=== PATIENT | female | born 1945 | race Caucasian/White ===

== ENCOUNTER 2021-11-08 23:22 | Emergency (ER) | payer MEDICARE, OTHER ==
[~2021-11-08] VITALS: Ht 152.4 cm; Wt 59.0 kg
[~2021-11-08 23:22] MED LIST: ACYC30OI TP; LEVO25TA9 PO; LEVO50TA8; [UNRECOGNIZED DRUG - OTHER]
--- NOTE | 2021-11-08 23:53 | NUR ---
PT SEEN BY LITA MO
--- NOTE | 2021-11-08 23:57 | NUR ---
BIBS C/O SOB X2DAYS AND COLD SYMPTOMS X3 DAYS. TESTED POSITIVE FOR COVID TODAY. PT A/OX4. TOLERATING R/A AT 100%. CONNECTED PT TO POX MONITOR.
[2021-11-09] MEDS ORDERED: AZIT250T13 PO (00:27)
[2021-11-09] MEDS: AZITHROMYCIN 250 MG TABLET PO ONE (00:30)
[2021-11-09] MEDS ORDERED: AZITHROMYCIN 250 MG TABLET ONE (00:33)
--- NOTE | 2021-11-09 00:37 | NUR ---
Patient discharged to home in stable condition. Written and verbal after care instructions given. Patient verbalizes understanding of instruction.pT ambulatory with a steady gait
[2021-11-09 01:08] VITALS: BP 157/91
== END 2021-11-09 00:37 | disposition home or self-care (01) ==
LOC: MERGE 23:27 → ER 23:27
DX: U07.1 COVID-19 (principal); J12.82 Pneumonia due to coronavirus disease 2019; H91.90 Unspecified hearing loss, unspecified ear; N39.0 Urinary tract infection, site not specified; F32.9 Major depressive disorder, single episode, unspecified; F41.9 Anxiety disorder, unspecified; E03.9 Hypothyroidism, unspecified; Z88.4 Allergy status to anesthetic agent; Z91.048 Other nonmedicinal substance allergy status; Z79.899 Other long term (current) drug therapy
CPT/HCPCS: 71045-TC

== ENCOUNTER 2022-03-13 16:22 | Emergency (ER) | payer MEDICARE, OTHER ==
[~2022-03-13] VITALS: Ht 162.6 cm; Wt 56.2 kg
[~2022-03-13 16:22] MED LIST changes: +AZIT250T13 PO
--- NOTE | 2022-03-13 16:35 | NUR ---
BIBS C/O LOWER ABDOMINAL PAIN 7/10 X COUPLE DAYS, PT STATED SHE URINATE MORE FREQUENTLY. AMBULATORY, PLACED ON BED, AAOX4.
--- NOTE | 2022-03-13 16:44 | NUR ---
AT BED SIDE
--- NOTE | 2022-03-13 16:47 | NUR ---
URINE SAMPLE SENT TO LAB
[2022-03-13 17:16] LABS: BASOPHILS % (AUTO) 0.8 % (0.0-2.0); EOSINOPHILS % (AUTO) 0.7 % (0.0-6.0); HEMATOCRIT 35 % (33-45); HEMOGLOBIN 11.6 g/dL (11.5-14.8); LYMPHOCYTES # (AUTO) 0.8 K/uL (0.8-4.8); LYMPHOCYTES % (AUTO) 15.1 % (20.0-44.0); MEAN CORPUSCULAR HGB CONC 33 g/dl (31.0-36.0); MEAN CORPUSCULAR VOLUME 94 fL (82-100); MONOCYTES # (AUTO) 0.5 K/uL (0.1-1.30); MONOCYTES % (AUTO) 9.4 % (2.0-12.0); NEUTROPHILS # (AUTO) 3.8 K/uL (1.8-8.9); PLATELET COUNT (AUTO) 256 K/uL (150-450); WHITE BLOOD COUNT (AUTO) 5.1 K/uL (4.3-11.0)
[2022-03-13 17:37] LABS: BILIRUBIN,URINE NEGATIVE (NEGATIVE); COLOR,URINE YELLOW (YELLOW); LEUKOCYTE ESTERASE ,URINE NEGATIVE (NEGATIVE); NITRITE, URINE NEGATIVE (NEGATIVE); PH,URINE 6.5 (5.0-8.0); PROTEIN,URINE NEGATIVE (NEGATIVE); UGLUCOSE NEGATIVE (NEGATIVE); UROBILINOGEN,URINE 0.2 EU/dL (0.2)
[2022-03-13 17:43] LABS: ALBUMIN 3.5 g/dL (3.4-5.0); BILIRUBIN,DIRECT 0.1 mg/dL (0.0-0.2); BILIRUBIN,TOTAL 0.3 mg/dL (0.2-1.0); CALCIUM, SERUM 8.4 mg/dL (8.5-10.1); CREATININE 0.8 mg/dL (0.6-1.3); TOTAL PROTEIN, SERUM 6.7 g/dL (6.4-8.2)
[2022-03-13] MEDS ORDERED: NITR100C6 PO (17:51)
[2022-03-13 17:57] VITALS: BP 105/62
[2022-03-13 17:57] LABS: BACTERIA,URINE RARE /HPF (None Seen); MUCUS,URINE Few /LPF (None Seen); WBC,URINE 0-2 /HPF (0-3)
--- NOTE | 2022-03-13 17:57 | NUR ---
Patient discharged to home in stable condition. Written and verbal after care instructions given. Patient verbalizes understanding of instruction.
== END 2022-03-13 17:55 | disposition home or self-care (01) ==
LOC: ER 16:27
DX: R31.9 Hematuria, unspecified (principal); E89.0 Postprocedural hypothyroidism; Z87.19 Personal history of other diseases of the digestive system; Z87.440 Personal history of urinary (tract) infections; Z88.8 Allergy status to other drugs, medicaments and biological substances; Z79.899 Other long term (current) drug therapy
CPT/HCPCS: 36415; 80048-TC; 80076-TC; 81001; 83690-TC; 85025-TC; 87086-TC

== ENCOUNTER 2022-03-18 16:33 | Emergency (ER) | payer MEDICARE, OTHER ==
[~2022-03-18] VITALS: Ht 162.6 cm; Wt 56.7 kg
[~2022-03-18 16:33] MED LIST changes: +NITR100C6 PO
--- NOTE | 2022-03-18 16:40 | NUR ---
BIB SELF C/O LOWER ABDOMINAL PAIN X 5 DAYS. SEEN HERE LAST 03/13/22 FOR UTI. ON ANTIBIOTIC TREATMENT. PATIENT IS PLACED IN RM 12. VITALS CHECKED.
[2022-03-18] MEDS ORDERED: CEFTRIAXONE 1GM BAG (ER ONLY) 50 ML IV ONE (17:52)
[2022-03-18] MEDS ORDERED: CEFTRIAXONE 1GM BAG (ER ONLY) 1 GM/50 ML PIGGYBACK IV ONE (18:00)
--- NOTE | 2022-03-18 18:05 | NUR ---
IV CANNULA G18 INSERTED ON RIGHT AC. BLOOD DRAWN AND SENT TO LAB
[2022-03-18 18:14] LABS: BASOPHILS # (AUTO) 0.1 K/uL (0.0-0.2); BASOPHILS % (AUTO) 1.2 % (0.0-2.0); EOSINOPHILS % (AUTO) 1.8 % (0.0-6.0); HEMATOCRIT 36 % (33-45); HEMOGLOBIN 12.1 g/dL (11.5-14.8); LYMPHOCYTES # (AUTO) 0.8 K/uL (0.8-4.8); LYMPHOCYTES % (AUTO) 15.2 % (20.0-44.0); MEAN CORPUSCULAR HGB CONC 34 g/dl (31.0-36.0); MEAN CORPUSCULAR VOLUME 95 fL (82-100); MONOCYTES # (AUTO) 0.5 K/uL (0.1-1.30); NEUTROPHILS # (AUTO) 3.9 K/uL (1.8-8.9); NEUTROPHILS % (AUTO) 72.8 % (43.0-81.0); PLATELET COUNT (AUTO) 258 K/uL (150-450); RED BLOOD CELL COUNT(AUTO) 3.81 MIL/uL (4.0-5.2); WHITE BLOOD COUNT (AUTO) 5.4 K/uL (4.3-11.0)
[2022-03-18 18:39] LABS: ALBUMIN 3.5 g/dL (3.4-5.0); BILIRUBIN,DIRECT 0.1 mg/dL (0.0-0.2); BILIRUBIN,TOTAL 0.3 mg/dL (0.2-1.0); CALCIUM, SERUM 8.4 mg/dL (8.5-10.1); CREATININE 0.8 mg/dL (0.6-1.3); TOTAL PROTEIN, SERUM 6.8 g/dL (6.4-8.2)
[2022-03-18 18:57] LABS: BILIRUBIN,URINE NEGATIVE (NEGATIVE); COLOR,URINE YELLOW (YELLOW); LEUKOCYTE ESTERASE ,URINE NEGATIVE (NEGATIVE); NITRITE, URINE NEGATIVE (NEGATIVE); PH,URINE 5.5 (5.0-8.0); PROTEIN,URINE NEGATIVE (NEGATIVE); UGLUCOSE NEGATIVE (NEGATIVE); UROBILINOGEN,URINE 0.2 EU/dL (0.2)
[2022-03-18] MEDS ORDERED: IV NS 0.9% 1,000 ML BAG IV ONE (19:00)
--- NOTE | 2022-03-18 19:13 | NUR ---
PATIENT WANT TO STOP IV FLUIDS. SHE SAID SHE DOESNT FEEL GOOD. WE EXPLAINED THE BENEFIT OF IT. DR RANDHAWA WENT TO TALK TO THE PATIENT.
--- NOTE | 2022-03-18 19:30 | NUR ---
SON AT BEDSIDE
[2022-03-18] MEDS ORDERED: SULF1TAB48 PO (19:50)
--- NOTE | 2022-03-18 20:09 | NUR ---
IV CANNULA REMOVED.
--- NOTE | 2022-03-18 20:10 | NUR ---
Patient discharged to home in stable condition. Written and verbal after care instructions given. Patient verbalizes understanding of instruction.
[2022-03-18 20:13] VITALS: BP 166/73
== END 2022-03-18 20:13 | disposition home or self-care (01) ==
LOC: ER 16:35
DX: N39.0 Urinary tract infection, site not specified (principal); Z87.19 Personal history of other diseases of the digestive system; Z87.440 Personal history of urinary (tract) infections; Z90.89 Acquired absence of other organs; Z88.8 Allergy status to other drugs, medicaments and biological substances; Z79.899 Other long term (current) drug therapy
CPT/HCPCS: 36415; 80048; 80076; 81003; 83690; 85025; 87086; 96374; 99283; J0696; J7030

== ENCOUNTER 2022-04-13 16:33 | Emergency (ER) | payer MEDICARE, OTHER ==
[~2022-04-13] VITALS: Ht 162.6 cm; Wt 58.5 kg
[~2022-04-13 16:33] MED LIST changes: -ACYC30OI TP; -AZIT250T13 PO; -LEVO50TA8; +SULF1TAB48 PO; -[UNRECOGNIZED DRUG - OTHER]
--- NOTE | 2022-04-13 16:41 | NUR ---
To Er bed 9, BIB Son "Been Having problems walking xmonths being checked for Parkinsons today started c/o numbness back -leg", aaox3, breathing even and non labored, changed into a gown, awainting md noble
--- NOTE | 2022-04-13 17:01 | NUR ---
DR MELGAR AT BEDSIDE
[2022-04-13 17:17] LABS: BASOPHILS # (AUTO) 0.1 K/uL (0.0-0.2); BASOPHILS % (AUTO) 1.2 % (0.0-2.0); EOSINOPHILS % (AUTO) 1.4 % (0.0-6.0); HEMATOCRIT 36 % (33-45); HEMOGLOBIN 11.7 g/dL (11.5-14.8); LYMPHOCYTES # (AUTO) 0.8 K/uL (0.8-4.8); LYMPHOCYTES % (AUTO) 15.5 % (20.0-44.0); MEAN CORPUSCULAR HGB CONC 33 g/dl (31.0-36.0); MEAN CORPUSCULAR VOLUME 94 fL (82-100); MONOCYTES # (AUTO) 0.7 K/uL (0.1-1.30); MONOCYTES % (AUTO) 13.4 % (2.0-12.0); NEUTROPHILS # (AUTO) 3.5 K/uL (1.8-8.9); NEUTROPHILS % (AUTO) 68.5 % (43.0-81.0); PLATELET COUNT (AUTO) 244 K/uL (150-450); RED BLOOD CELL COUNT(AUTO) 3.78 MIL/uL (4.0-5.2); WHITE BLOOD COUNT (AUTO) 5.2 K/uL (4.3-11.0)
[2022-04-13 17:27] LABS: CALCIUM, SERUM 8.7 mg/dL (8.5-10.1); CARBON DIOXIDE 25 mmol/L (21-32); CHLORIDE 104 mmol/L (98-107); CREATININE 0.9 mg/dL (0.6-1.3); GLUCOSE 116 mg/dL (74-106); SODIUM SERUM 137 mmol/L (136-145); UREA NITROGEN, BLOOD 26 mg/dL (7-18)
--- NOTE | 2022-04-13 17:29 | NUR ---
PATIENT AMBULATED TO RESTROOM WITH SLOW AND STEADY GAIT.
[2022-04-13 17:32] LABS: ALANINE AMINOTRANSFERASE 20 U/L (12-78); ALBUMIN 3.7 g/dL (3.4-5.0); ALKALINE PHOSPHATASE 87 U/L (46-116); ASPARTATE AMINOTRANSFERASE 16 U/L (15-37); BILIRUBIN,DIRECT 0.1 mg/dL (0.0-0.2); BILIRUBIN,TOTAL 0.2 mg/dL (0.2-1.0)
[2022-04-13 19:28] VITALS: BP 121/75
--- NOTE | 2022-04-13 19:28 | NUR ---
Patient discharged to home in stable condition. Written and verbal after care instructions given. Patient verbalizes understanding of instruction.
== END 2022-04-13 19:28 | disposition home or self-care (01) ==
LOC: ER 16:37
DX: R20.0 Anesthesia of skin (principal); Z87.19 Personal history of other diseases of the digestive system; Z87.440 Personal history of urinary (tract) infections; Z90.89 Acquired absence of other organs; Z79.899 Other long term (current) drug therapy
CPT/HCPCS: 36415; 70450-TC; 71045-TC; 80048-TC; 80076-TC; 84484-TC; 85025-TC; 85730-TC

== ENCOUNTER 2022-04-25 15:56 | Emergency (ER) | payer MEDICARE, OTHER ==
[~2022-04-25] VITALS: Ht 165.1 cm; Wt 57.7 kg
--- NOTE | 2022-04-25 16:00 | NUR ---
SCAR FOR C/O RIGHT ARM AND RIGHT LEG BURNING SENSATION X FEW MONTHS. ALSO, C/O HEADACHE 12/22. PT ATTACHED TO MONITOR, VITALS ARE WITHIN NORMAL LIMITS, NO RESP DISTRESS NOTED ON ROOM AIR. ABLE TO AMBULATE ON HER OWN. WARM BLANKET PROVIDED FOR COMFORT. DR MARTINEZ AT BEDSIDE.
--- NOTE | 2022-04-25 16:15 | NUR ---
IV ETSBALISHED L AC 18G. LABS DRAWN AND COLLECTED AT BEDSIDE.
--- NOTE | 2022-04-25 16:34 | NUR ---
The patient is alert and oriented x4. In room air and denies SOB. Respiration regular and unlabored. Denies pain at this time. IV removed. Catheter intact and site benign. Pressure and 4x4 applied to site. No bleeding noted.Patient discharged to home in stable condition. Written and verbal after care instructions given. Patient verbalizes understanding of instruction. The patient is picked up by her son.
[2022-04-25 16:35] VITALS: BP 127/67
== END 2022-04-25 16:36 | disposition home or self-care (01) ==
LOC: ER 16:12
DX: M54.10 Radiculopathy, site unspecified (principal); Z90.89 Acquired absence of other organs; Z87.19 Personal history of other diseases of the digestive system; Z87.440 Personal history of urinary (tract) infections; Z88.8 Allergy status to other drugs, medicaments and biological substances; Z79.899 Other long term (current) drug therapy

== ENCOUNTER 2023-01-27 17:40 | Emergency (ER) | payer MEDICARE, OTHER ==
[~2023-01-27] VITALS: Ht 165.1 cm; Wt 58.1 kg
--- NOTE | 2023-01-27 17:40 | NUR ---
BIBS FOR CHRONIC LEFT SIDED LEG AND GLUTEAL PAIN, A/O X 3, HARD OF HEARING ON RIGHT EAR, ABLE TO MAKE NEEDS KNOWN, TOLERATING WELL ON ROOM AIR.
[2023-01-27] MEDS ORDERED: KETOROLAC TROMETHAMINE INJ 60 MG/2 ML VIAL IM ONE (18:30)
[2023-01-27] MEDS ORDERED: KETOROLAC TROMETHAMINE INJ 30 MG/ML VIAL ONE (18:31)
[2023-01-27] MEDS ORDERED: CARI350T PO (19:53)
[2023-01-27] MEDS ORDERED: HYDR-4303 PO (19:53)
[2023-01-27 20:04] VITALS: BP 124/77
--- NOTE | 2023-01-27 20:04 | NUR ---
Patient discharged to home in stable condition. Written and verbal after care instructions given. Patient verbalizes understanding of instruction.
== END 2023-01-27 20:04 | disposition home or self-care (01) ==
LOC: ER 17:51
DX: M51.26 Other intervertebral disc displacement, lumbar region (principal); Z87.440 Personal history of urinary (tract) infections; Z88.8 Allergy status to other drugs, medicaments and biological substances
CPT/HCPCS: 99285; 72131; 96372; J1885

== ENCOUNTER 2023-06-06 17:27 | Emergency (ER) | payer MEDICARE, OTHER ==
[~2023-06-06] VITALS: Ht 162.6 cm; Wt 54.4 kg
[~2023-06-06 17:27] MED LIST changes: +CARI350T PO; +HYDR-4303 PO; +NEOM10DR11 EACH EAR
[2023-06-06] MEDS ORDERED: NAPR-1009 PO (18:28)
[2023-06-06] MEDS ORDERED: METH4TAB17 PO (18:28)
[2023-06-06] MEDS ORDERED: HYDR-3980 PO (18:28)
[2023-06-06] MEDS ORDERED: LIDO30AD10 TP (18:28)
[2023-06-06] MEDS ORDERED: NAPROXEN 250 MG TABLET PO ONE (18:30)
[2023-06-06] MEDS ORDERED: HYDROCODONE/APAP 5/325MG TABLET PO ONE (18:30)
[2023-06-06] MEDS ORDERED: HYDROCODONE/APAP 5/325MG TABLET ONE (18:35)
[2023-06-06] MEDS ORDERED: NAPROXEN 250 MG TABLET ONE (18:36)
[2023-06-06 19:21] VITALS: BP 118/78; TEMP 98.7; O2SAT 97
== END 2023-06-06 19:21 | disposition home or self-care (01) ==
LOC: ER 17:29
DX: G89.29 Other chronic pain (principal); M54.41 Lumbago with sciatica, right side; Z87.440 Personal history of urinary (tract) infections; Z88.8 Allergy status to other drugs, medicaments and biological substances; Z79.899 Other long term (current) drug therapy

== ENCOUNTER 2023-07-08 19:19 | Emergency (ER) | payer MEDICARE, OTHER ==
[~2023-07-08] VITALS: Ht 162.6 cm; Wt 53.1 kg
[~2023-07-08 19:19] MED LIST changes: +HYDR-3980 PO; +LIDO30AD10 TP; +METH4TAB17 PO; +NAPR-1009 PO
[2023-07-08 19:45] VITALS: BP 118/78; TEMP 97.8; O2SAT 99
== END 2023-07-08 20:20 | disposition left against medical advice (07) ==
LOC: ER 19:25
DX: M54.50 Low back pain, unspecified (principal); M79.604 Pain in right leg; Z53.21 Procedure and treatment not carried out due to patient leaving prior to being seen by health care provider

== ENCOUNTER 2023-09-09 15:49 | Emergency (ER) | payer MEDICARE, OTHER ==
[~2023-09-09] VITALS: Ht 162.6 cm; Wt 55.8 kg
[2023-09-09] MEDS ORDERED: LIDOCAINE 5% (PATCH) 1 EA PATCH TP SCH (17:00)
[2023-09-09] MEDS ORDERED: LIDOCAINE 5% (PATCH) 1 EA PATCH TP ONE (17:04)
[2023-09-09] MEDS ORDERED: predniSONE 20 MG TABLET ONE (18:14)
[2023-09-09] MEDS ORDERED: ACET-2605 PO (18:16)
[2023-09-09] MEDS ORDERED: PRED20TA PO (18:16)
[2023-09-09] MEDS ORDERED: LIDO30AD10 TP (18:16)
[2023-09-09 18:22] VITALS: BP 120/64; TEMP 98.1; O2SAT 98
[2023-09-09] MEDS ORDERED: predniSONE 20 MG TABLET PO ONE (18:30)
== END 2023-09-09 18:23 | disposition home or self-care (01) ==
LOC: ER 15:56
DX: M54.42 Lumbago with sciatica, left side (principal); M54.41 Lumbago with sciatica, right side; Z60.2 Problems related to living alone; Z79.899 Other long term (current) drug therapy
CPT/HCPCS: 99284; 72131; J7512

== ENCOUNTER 2023-10-23 06:05 | Inpatient (IN) | payer MEDICARE, MEDICAID ==
[~2023-10-23] VITALS: Ht 157.5 cm; Wt 49.9 kg
[~2023-10-23 06:05] MED LIST changes: +ACET-2605 PO; +PRED20TA PO
[2023-10-23 07:20] LABS: BASOPHILS % (AUTO) 0.8 % (0.0-2.0); EOSINOPHILS # (AUTO) 0.1 K/uL (0.0-0.7); EOSINOPHILS % (AUTO) 1.6 % (0.0-6.0); HEMATOCRIT 34 % (33-45); HEMOGLOBIN 11.4 g/dL (11.5-14.8); LYMPHOCYTES # (AUTO) 1.1 K/uL (0.8-4.8); MEAN CORPUSCULAR HEMOGLOBIN 32 PG (26.0-33.0); MEAN CORPUSCULAR HGB CONC 33 g/dl (31.0-36.0); MEAN CORPUSCULAR VOLUME 97 fL (82-100); MONOCYTES # (AUTO) 0.7 K/uL (0.1-1.30); MONOCYTES % (AUTO) 13.5 % (2.0-12.0); NEUTROPHILS # (AUTO) 3.1 K/uL (1.8-8.9); NEUTROPHILS % (AUTO) 62.1 % (43.0-81.0); PLATELET COUNT (AUTO) 269 K/uL (150-450); RED BLOOD CELL COUNT(AUTO) 3.52 MIL/uL (4.0-5.2); RED CELL DISTRIBUTION WIDTH 14.5 % (11.5-15.0)
[2023-10-23 07:30] LABS: CALCIUM, SERUM 8.7 mg/dL (8.5-10.1); CARBON DIOXIDE 29 mmol/L (21-32); CHLORIDE 102 mmol/L (98-107); CREATININE 0.7 mg/dL (0.6-1.3); GLUCOSE 94 mg/dL (74-106); POTASSIUM 3.7 mmol/L (3.5-5.1); SODIUM SERUM 136 mmol/L (136-145); UREA NITROGEN, BLOOD 34 mg/dL (7-18)
[2023-10-23] MEDS ORDERED: ACET-2605 PO (08:50)
[2023-10-23] MEDS ORDERED: CARB1TAB21 PO (08:50)
[2023-10-23 08:56] LABS: APPEARANCE,URINE CLEAR (CLEAR); BILIRUBIN,URINE NEGATIVE (NEGATIVE); BLOOD, URINE 1+ Ery/uL (NEGATIVE); COLOR,URINE YELLOW (YELLOW); KETONES,URINE NEGATIVE (NEGATIVE); LEUKOCYTE ESTERASE ,URINE NEGATIVE (NEGATIVE); NITRITE, URINE NEGATIVE (NEGATIVE); PROTEIN,URINE NEGATIVE (NEGATIVE); UGLUCOSE NEGATIVE (NEGATIVE); UROBILINOGEN,URINE 0.2 EU/dL (0.2)
[2023-10-23 09:19] VITALS: O2SAT 100
[2023-10-23 09:37] LABS: ADD URINE CULTURE NO; BACTERIA,URINE None seen /HPF (None Seen); SQUAMOUS EPITHELIAL CELL,UR Few /HPF (None Seen); WBC,URINE NONE SEEN /HPF (0-3)
[2023-10-23] MEDS ORDERED: MAG HYDROX/AL HYDROX/SIMETH 30 ML UDC PO PRN (12:00)
[2023-10-23] MEDS ORDERED: MAGNESIUM HYDROXIDE 30 ML UDC PO PRN (12:00)
[2023-10-23] MEDS ORDERED: ZOLPIDEM TARTRATE 5 MG TABLET PO PRN (12:00)
[2023-10-23] MEDS ORDERED: ACETAMINOPHEN 325 MG TABLET PO PRN (12:00)
[2023-10-23] MEDS ORDERED: Z GUARD REMEDY 4 OZ OINT TP PRN (12:00)
[2023-10-23] MEDS ORDERED: IV NS 0.9% 1,000 ML IV PRN (12:00)
[2023-10-23] MEDS ORDERED: ONDANSETRON HCL/PF 4 MG/2 ML VIAL IVP PRN (12:00)
[2023-10-23 16:00] VITALS: BP 143/81; TEMP 98.4; O2SAT 97
[2023-10-23 18:11] LABS: THYROID STIMULATING HORMONE 1.35 uIU/mL (0.358-3.74)
[2023-10-23 20:00] VITALS: BP 138/78; TEMP 97.7; O2SAT 96
[2023-10-24] VITALS: BP 159/77; TEMP 97.9; O2SAT 98
[2023-10-24] MEDS ORDERED: LEVOTHYROXINE SODIUM 75 MCG TABLET PO SCH (07:30)
[2023-10-24 07:46] LABS: BASOPHILS # (AUTO) 0.1 K/uL (0.0-0.2); EOSINOPHILS # (AUTO) 0.1 K/uL (0.0-0.7); EOSINOPHILS % (AUTO) 1.8 % (0.0-6.0); HEMATOCRIT 37 % (33-45); HEMOGLOBIN 12.4 g/dL (11.5-14.8); MEAN CORPUSCULAR HEMOGLOBIN 33 PG (26.0-33.0); MEAN CORPUSCULAR HGB CONC 33 g/dl (31.0-36.0); MEAN CORPUSCULAR VOLUME 98 fL (82-100); MONOCYTES # (AUTO) 0.7 K/uL (0.1-1.30); MONOCYTES % (AUTO) 12.8 % (2.0-12.0); NEUTROPHILS # (AUTO) 3.5 K/uL (1.8-8.9); NEUTROPHILS % (AUTO) 65.4 % (43.0-81.0); PLATELET COUNT (AUTO) 277 K/uL (150-450); RED CELL DISTRIBUTION WIDTH 14.8 % (11.5-15.0); WHITE BLOOD COUNT (AUTO) 5.3 K/uL (4.3-11.0)
[2023-10-24 08:00] VITALS: BP 133/68; TEMP 99.1; O2SAT 99
[2023-10-24 08:05] LABS: CALCIUM, SERUM 8.9 mg/dL (8.5-10.1); CREATININE 0.6 mg/dL (0.6-1.3); MAGNESIUM 2.2 mg/dL (1.8-2.4); PHOSPHORUS 3.8 mg/dL (2.5-4.9); POTASSIUM 4.1 mmol/L (3.5-5.1)
[2023-10-24 08:24] LABS: THYROID STIMULATING HORMONE 1.616 uIU/mL (0.358-3.74)
[2023-10-24] MEDS ORDERED: CARBIDOPA/LEVODOPA 25/100 MG 1 UDTAB PO SCH (09:00)
== END 2023-10-24 11:00 | disposition home or self-care (01) | DRG 57 ==
LOC: ER 06:07 → TELE 13:11
PROVIDERS: ADMIT Nurse Practitioner Acute Care; ATTEND Nurse Practitioner Acute Care
DX: G91.2 (Idiopathic) normal pressure hydrocephalus (principal); I10 Essential (primary) hypertension; R53.1 Weakness; G20.A1 Parkinson's disease without dyskinesia, without mention of fluctuations; E89.0 Postprocedural hypothyroidism; R26.89 Other abnormalities of gait and mobility; R79.89 Other specified abnormal findings of blood chemistry; I08.0 Rheumatic disorders of both mitral and aortic valves; M19.90 Unspecified osteoarthritis, unspecified site; W19.XXXA Unspecified fall, initial encounter; Y93.9 Activity, unspecified; Y92.009 Unspecified place in unspecified non-institutional (private) residence as the place of occurrence of the external cause
CPT/HCPCS: 36415; 70450-TC; 71045-TC; 80048-TC; 80061-TC; 81001; 82728-TC; 82962-TC; 83540-TC; 83735-TC; 84100-TC; 84439-TC; 84443-TC; 84484-TC; 85025-TC; 93307-TC; 93880-TC; A4223; G0378; J7030; J7042

== ENCOUNTER 2023-11-07 00:37 | Emergency (ER) | payer MEDICARE, OTHER ==
[~2023-11-07] VITALS: Ht 162.6 cm; Wt 53.1 kg
[~2023-11-07 00:37] MED LIST changes: +CARB1TAB21 PO; -CARI350T PO; -HYDR-3980 PO; -HYDR-4303 PO; -LIDO30AD10 TP; -METH4TAB17 PO; -NAPR-1009 PO; -NEOM10DR11 EACH EAR; -NITR100C6 PO; -PRED20TA PO; -SULF1TAB48 PO
[2023-11-07 01:05] VITALS: BP 159/94; TEMP 98.5; O2SAT 98
[2023-11-07 02:04] LABS: BASOPHILS # (AUTO) 0.1 K/uL (0.0-0.2); BASOPHILS % (AUTO) 1.1 % (0.0-2.0); EOSINOPHILS # (AUTO) 0.1 K/uL (0.0-0.7); EOSINOPHILS % (AUTO) 1.4 % (0.0-6.0); HEMATOCRIT 35 % (33-45); HEMOGLOBIN 11.6 g/dL (11.5-14.8); LYMPHOCYTES # (AUTO) 0.7 K/uL (0.8-4.8); LYMPHOCYTES % (AUTO) 10.1 % (20.0-44.0); MEAN CORPUSCULAR HEMOGLOBIN 33 PG (26.0-33.0); MEAN CORPUSCULAR HGB CONC 33 g/dl (31.0-36.0); MEAN CORPUSCULAR VOLUME 99 fL (82-100); MONOCYTES # (AUTO) 0.5 K/uL (0.1-1.30); NEUTROPHILS # (AUTO) 5.3 K/uL (1.8-8.9); NEUTROPHILS % (AUTO) 79.4 % (43.0-81.0); PLATELET COUNT (AUTO) 295 K/uL (150-450); RED BLOOD CELL COUNT(AUTO) 3.55 MIL/uL (4.0-5.2); RED CELL DISTRIBUTION WIDTH 14.6 % (11.5-15.0); WHITE BLOOD COUNT (AUTO) 6.7 K/uL (4.3-11.0)
[2023-11-07 02:21] LABS: CALCIUM, SERUM 8.6 mg/dL (8.5-10.1); CREATININE 0.7 mg/dL (0.6-1.3); POTASSIUM 3.8 mmol/L (3.5-5.1)
[2023-11-07 02:33] LABS: ALBUMIN 3.6 g/dL (3.4-5.0); BILIRUBIN,TOTAL 0.2 mg/dL (0.2-1.0)
== END 2023-11-07 05:23 | disposition left against medical advice (07) ==
LOC: ER 00:38
DX: M71.21 Synovial cyst of popliteal space [Baker], right knee (principal); R60.0 Localized edema; G20.A1 Parkinson's disease without dyskinesia, without mention of fluctuations; Z98.890 Other specified postprocedural states; Z79.899 Other long term (current) drug therapy; Z60.2 Problems related to living alone
CPT/HCPCS: 99284; 93971; 71045; 85025; 36415; 80053; 84484; 83880; A4649

== ENCOUNTER 2024-02-18 19:28 | Emergency (ER) | payer MEDICARE, OTHER ==
[~2024-02-18] VITALS: Ht 162.6 cm; Wt 54.4 kg
[2024-02-18 20:03] VITALS: BP 99/60; TEMP 98.8; O2SAT 98
[2024-02-18] MEDS ORDERED: IBUPROFEN 400 MG TABLET ONE (20:41)
[2024-02-18] MEDS: IBUPROFEN 400 MG TABLET PO ONE (20:43)
[2024-02-18 22:13] LABS: APPEARANCE,URINE CLOUDY (CLEAR); BILIRUBIN,URINE NEGATIVE (NEGATIVE); BLOOD, URINE 2+ Ery/uL (NEGATIVE); COLOR,URINE YELLOW (YELLOW); KETONES,URINE NEGATIVE (NEGATIVE); LEUKOCYTE ESTERASE ,URINE 2+ (NEGATIVE); NITRITE, URINE POSITIVE (NEGATIVE); PROTEIN,URINE NEGATIVE (NEGATIVE); UGLUCOSE NEGATIVE (NEGATIVE); UROBILINOGEN,URINE 0.2 EU/dL (0.2)
[2024-02-18 22:22] LABS: ADD URINE CULTURE YES; BACTERIA,URINE Few /HPF (None Seen); SQUAMOUS EPITHELIAL CELL,UR Rare /HPF (None Seen)
== END 2024-02-18 22:09 | disposition left against medical advice (07) ==
LOC: ER 19:30
DX: G89.29 Other chronic pain (principal); M25.571 Pain in right ankle and joints of right foot; R30.0 Dysuria; G20.A1 Parkinson's disease without dyskinesia, without mention of fluctuations; Z90.89 Acquired absence of other organs; Z79.899 Other long term (current) drug therapy; Z60.2 Problems related to living alone
CPT/HCPCS: 73610-TC; 81001; 87086-TC

== ENCOUNTER 2024-07-16 19:30 | Emergency (ER) | payer MEDICARE, OTHER | END 2024-07-16 23:26 | disposition left against medical advice (07) | LOC: ER 19:34 | DX: Z00.00 Encounter for general adult medical examination without abnormal findings (principal); Z53.21 Procedure and treatment not carried out due to patient leaving prior to being seen by health care provider ==